=== PATIENT | male | born 1930 | race Caucasian/White ===

== ENCOUNTER 2020-12-22 08:56 | Inpatient (IN) | payer OTHER ==
[~2020-12-22] VITALS: Ht 190.5 cm; Wt 75.3 kg
--- NOTE | 2020-12-22 09:15 | NUR ---
Patient to ER bed 4 to gown for evaluation. Side rails up. Report given to Samaria THOMPSON.
--- NOTE | 2020-12-22 09:15 | NUR ---
Placed in room 4 . Placed on classroom monitor, blood pressure machine and pulse oximeter. To gown for exam. Side rails up. Report given to DONNA Mera.
--- NOTE | 2020-12-22 09:15 | NUR ---
ER at bedside examining patient.
[2020-12-22 09:16] VITALS: BP_SYST 157
[2020-12-22] MEDS ORDERED: DIPH-TET-PERTUS Vaccine 0.5 ML VIAL (ADACEL) I.M. ONE (09:30)
--- NOTE | 2020-12-22 09:32 | NUR ---
Pt. bib after a fall yesterday, pt. states his legs are typically weak and while outside yesterday he was a little dizzy and due to his weak legs he fell in the bushes, has scrapes on both arms and belly, and large scrape to Right FA with bruising. Denies any pain able to move arm with no difficulty.
[2020-12-22 09:58] LABS: BASOPHILS % (AUTO) 0.6 % (0.0-2.0); EOSINOPHILS % (AUTO) 0.1 % (0.0-4.0); HEMOGLOBIN 13.7 g/dL (14.0-18.0); LYMPHOCYTES # (AUTO) 1.3 K/uL (1.0-5.5); LYMPHOCYTES % (AUTO) 17.1 % (20.5-51.5); MEAN CORPUSCULAR HEMOGLOBIN 31 pg (27-31); MEAN CORPUSCULAR HGB CONC 35 % (32-36); MEAN CORPUSCULAR VOLUME 88 fL (79.0-98.0); MONOCYTES # (AUTO) 0.7 K/uL (0.0-1.0); MONOCYTES % (AUTO) 8.7 % (1.7-9.3); NEUTROPHILS # (AUTO) 5.7 K/uL (1.8-7.7); NEUTROPHILS % (AUTO) 73.5 % (40.0-70.0); PLATELET COUNT (AUTO) 203 K/uL (130-430); RED BLOOD CELL COUNT(AUTO) 4.45 MIL/uL (4.2-6.2); RED CELL DISTRIBUTION WIDTH 13.4 % (9.0-15.0); WHITE BLOOD COUNT (AUTO) 7.7 K/uL (4.8-10.8)
[2020-12-22 10:07] LABS: BILIRUBIN,URINE NEGATIVE (NEGATIVE); BLOOD, URINE NEGATIVE (NEGATIVE); COLOR,URINE YELLOW (YELLOW); GLUCOSE,URINE NEGATIVE (NEGATIVE); KETONES,URINE TRACE (NEGATIVE); LEUKOCYTE ESTERASE ,URINE NEGATIVE (NEGATIVE); NITRITE, URINE NEGATIVE (NEGATIVE); PROTEIN URINE NEGATIVE (NEGATIVE); UROBILINOGEN,URINE 0.2 (0.2-1.0)
[2020-12-22 10:08] LABS: ANION GAP 14 (5-15); CALCIUM 9.1 mg/dL (8.4-11.0); CHLORIDE 97 mmol/L (98-107); GLUCOSE 132 mg/dL (70-99); POTASSIUM 3.9 mmol/L (3.5-5.1); SODIUM SERUM 136 mmol/L (136-145); UREA NITROGEN, BLOOD 9 mg/dL (8-21)
[2020-12-22 10:13] LABS: CLARITY/URINE CLEAR (CLEAR)
[2020-12-22] MEDS ORDERED: BACITRACIN 1 GM OINT TP ONE (10:15)
[2020-12-22 10:17] LABS: ALANINE AMINOTRANSFERASE 39 U/L (12-78); ALBUMIN 3.5 g/dL (3.4-4.8); ASPARTATE AMINOTRANSFERASE 78 U/L (10-37); LIPASE 59 U/L (73-393); TOTAL BILIRUBIN 0.8 mg/dL (0.0-1.0)
--- NOTE | 2020-12-22 10:26 | NUR ---
abrassion to Right FA cleaned and bacitricin applied
--- NOTE | 2020-12-22 10:29 | NUR ---
radiology here for chest xray
[2020-12-22] MEDS ORDERED: LISI10TA29 PO (10:35)
[2020-12-22] MEDS ORDERED: FINA5TAB3 PO (10:35)
[2020-12-22] MEDS ORDERED: TERA2CAP18 PO (10:35)
--- NOTE | 2020-12-22 10:36 | NUR ---
ER at bedside discussing lab results and admission with patient.
[2020-12-22] MEDS ORDERED: ASPIRIN 325 MG TABLET PO ONE (10:45)
--- NOTE | 2020-12-22 10:57 | NUR ---
MED. REC. AND PT. BELONGINGS FORM DONE
[2020-12-22 11:19] LABS: CKMB RELATIVE INDEX 0.6 (0.0-2.9); CREATINE KINASE MB 11.9 ng/mL (0-3.6)
--- NOTE | 2020-12-22 11:40 | NUR ---
OPENING NOTE RECEIVED SBAR FROM ED RN, PATIENT IN BED, RESPIRATIONS, EVEN, NON LABORED, BED IN LOW AND LOCKED POSITION CALL LIGHT WITHIN REACH, BED ALARM ON. OBTAINED VS. INVENTORY OBTAINED OF PERSONAL ITEMS, EDUCATED PATIENT ON THE USE OF CALL LIGHT AND HOSPITAL ROUTINE. PATIENT ABLE TO DEMONSTRATE PROPER USE OF CALL LIGHT.
--- NOTE | 2020-12-22 11:41 | NUR ---
Patient will be admitted to care of Admitted to tele unit. Will go to room 105A. Belongings list completed. Complete and up to date summary report printed. SBAR report to be given at bedside to Carissa with opportunity for questions.
[2020-12-22] MEDS ORDERED: TERAZOSIN HCL 1 MG CAPSULE (HYTRIN) PO ONE (12:00)
[2020-12-22] MEDS ORDERED: FINASTERIDE 5 MG TABLET (PROSCAR) PO ONE (12:00)
[2020-12-22] MEDS ORDERED: LISINOPRIL 10 MG TABLET (PRINIVIL) PO ONE (12:00)
--- NOTE | 2020-12-22 12:22 | NUR ---
IV IV INSERTION TO RIGHT HAND 22G, FLUSHED FREELY NO SIGNS OF DISTRESS NOTED BY PATIENT
[2020-12-22 12:43] VITALS: BP_SYST 149
--- NOTE | 2020-12-22 13:52 | NUR ---
CONSULTATION: REASON FOR CONSULT: NSTEMI CONSULTING PHYSICIAN: LISETTE ORDERED BY:BRITTA SPOKE WITH ZOILA [phone]
--- NOTE | 2020-12-22 14:14 | NUR ---
Wound Evaluation: Wound Consult ordered for Low Osmany Score. Patient evaluated for a low Osmany score of 19. Patient was awake, alert, oriented and received in a Armen Bed with an Isoflex GEORGIE mattress. Patient is able to turn in bed. Skin assessment: 1. Right Mid Anterior Medial Forearm: Skin tear, present on admission. Wound bed has 60% pink tissue, 15% black scab, 50% yellow tissue, 10% red tissue. No odor, small sanguineous/yellow drainage. Periwound intact. Ecchymosis surrounding skin tear area. Skin tear measures 7.8 cm x 5.0 cm. Recommend: Cleanse skin tear with normal saline. Apply SurePrep to saul-skin tear area. Apply Hydrogel to skin tear bed. Cover with non-adhesive foam dressing. Wrap with Cristine wrap. Perform skin tear care daily, and as needed for dressing soiling or dislodgment. 2. Right Forearm, superior to site 1: Skin tear, present on admission. Skin tear is approximated, with no visible opening. No odor, no drainage. Recommend: Cover site with non-adhesive foam dressing. Wrap with Cristine wrap (same Cristine wrap used for Site 1). Perform site care daily, and as needed for dressing soiling or dislodgment. Recommend: Encourage and assist patient as needed with repositioning every 2 hours with pillow support. Elevate, off-load and float bilateral heels with one pillow lengthwise under each extremity at all times. Offload pressure areas with pillows for pressure re-distribution. Perform skin care and monitor skin integrity Q shift. Use moisture barrier cream on moisture susceptible areas QID and PRN for soiling. Addendum: 12/22/20 at 1430 by Roby Badillo RN Addendum: Skin tear in Site 2 measures 0.6 cm x 1.2 cm.
[2020-12-22 16:00] VITALS: BP_SYST 136
--- NOTE | 2020-12-22 17:11 | NUR ---
HAND [employer] DR KNOX WAS CALLED, RE: CRITICAL TROP LEVEL. SPOKE TO HAMIDA.
--- NOTE | 2020-12-22 17:21 | NUR ---
CRITICAL LAB INFORMED DR KNOX OF CRITICAL LAB TROPONIN 0.265
--- NOTE | 2020-12-22 17:32 | NUR ---
MD ROUNDS DR KNOX BEDSIDE EXAMINING PATIENT
[2020-12-22] MEDS ORDERED: ACETAMINOPHEN 325 MG TABLET PO PRN ×2 (18:15→18:45)
[2020-12-22] MEDS: NACL 0.9% 1,000 ML IV SCH (18:38)
--- NOTE | 2020-12-22 18:40 | NUR ---
spoke with Dr Brown, pharmacy called and needed parameters for tylenol. , new orders received
[2020-12-22 19:00] VITALS: BP_SYST 141
--- NOTE | 2020-12-22 19:02 | NUR ---
closing note Provided Sbar to night RN, patient in bed, respirations even, non labored, bed in low and locked position call light within reach, bed alarm on. IFv's running as ordered Endorsed care to night RN
[2020-12-22 20:00] VITALS: BP_SYST 141
[2020-12-23 00:24] VITALS: BP_SYST 118
[2020-12-23] MEDS: NACL 0.9% 1,000 ML IV SCH (04:19)
[2020-12-23 07:01] LABS: ALANINE AMINOTRANSFERASE 36 U/L (12-78); ALBUMIN 3.2 g/dL (3.4-4.8); ANION GAP 10 (5-15); ASPARTATE AMINOTRANSFERASE 63 U/L (10-37); CALCIUM 8.6 mg/dL (8.4-11.0); CHLORIDE 104 mmol/L (98-107); CREATININE 0.68 mg/dL (0.55-1.30); GLUCOSE 93 mg/dL (70-99); POTASSIUM 3.7 mmol/L (3.5-5.1); SODIUM SERUM 138 mmol/L (136-145); THYROID STIMULATING HORMONE 0.72 uIu/mL (0.36-3.74); TOTAL BILIRUBIN 0.8 mg/dL (0.0-1.0); UREA NITROGEN, BLOOD 8 mg/dL (8-21)
--- NOTE | 2020-12-23 07:40 | NUR ---
OPENING NOTES PT AWAKE, ALERT, AND ORIENTED. NONLABORED BREATHING NOTED ON ROOM AIR, TOLERATING WELL. IV LINE INTACT AND PATENT, NO SIGNS OF INFILTRATION NOTED. NO ACUTE DISTRESS NOTED. ALL NEEDS MET. CALL LIGHT IN REACH. FALL AND ASPIRATION PRECAUTIONS IN PLACE.
[2020-12-23 07:41] LABS: CHOLESTEROL 166 mg/dL (<200); CKMB RELATIVE INDEX 0.5 (0.0-2.9); CREATINE KINASE MB 5.5 ng/mL (0-3.6); HDL CHOLESTEROL 54 mg/dL (>45); LDL CHOLESTEROL 102 mg/dL (<100); TRIGLYCERIDES 61 mg/dL (30-150)
[2020-12-23 08:00] VITALS: BP_SYST 134
--- NOTE | 2020-12-23 08:40 | NUR ---
CLEARED BY DR. KNOX FOR DC
[2020-12-23] MEDS ORDERED: ASPIRIN 325 MG TABLET (ECOTRIN) PO SCH (09:00)
[2020-12-23] MEDS ORDERED: LISINOPRIL 10 MG TABLET (PRINIVIL) PO SCH (09:00)
[2020-12-23] MEDS ORDERED: FINASTERIDE 5 MG TABLET (PROSCAR) PO SCH (09:00)
[2020-12-23] MEDS ORDERED: TERAZOSIN HCL 1 MG CAPSULE (HYTRIN) PO SCH (09:00)
--- NOTE | 2020-12-23 09:46 | NUR ---
ROUTINE MEDS ADMINISTERED ORDERED PER MD, EDUCATION GIVEN, TOLERATED WELL.
[2020-12-23] MEDS ORDERED: ECO325 PO (11:53)
[2020-12-23 12:40] VITALS: BP_SYST 145
--- NOTE | 2020-12-23 12:45 | NUR ---
wound care done, tolerated well
[2020-12-23 13:38] VITALS: BP_SYST 145
--- NOTE | 2020-12-23 13:41 | NUR ---
D/C Patient Patient given medication reconciliation form and D/C instructions. Exit Care provided. Patient verbalized understanding. MD discussed with patient the results and treatment provided. Ambulatory with steady gait for discharge to home. Patient in stable condition, ID band removed. IV catheter removed, intact and dressing applied, no active bleeding. Rx of aspirin and cane given. Patient educated on pain management. All belongings sent with patient.
== END 2020-12-23 13:40 | disposition home or self-care (01) | DRG 281 ==
LOC: SED 08:56 → STU 10:48
PROVIDERS: ADMIT Internal Medicine Hospice and Palliative Medicine; ATTEND Internal Medicine Hospice and Palliative Medicine
DX: I21.4 Non-ST elevation (NSTEMI) myocardial infarction (principal); M62.82 Rhabdomyolysis; N40.0 Benign prostatic hyperplasia without lower urinary tract symptoms; E78.5 Hyperlipidemia, unspecified; I10 Essential (primary) hypertension; E88.09 Other disorders of plasma-protein metabolism, not elsewhere classified; Z20.822 Contact with and (suspected) exposure to COVID-19; R53.81 Other malaise; Z79.899 Other long term (current) drug therapy
CPT/HCPCS: 36415; 71045; 80053; 80061; 81003; 82550; 82553; 83690; 83735; 84443; 84484; 85025; 90715; 93005; 93306; 97116-GP; 97530-GP; 99285; G0378

== ENCOUNTER 2021-09-24 07:57 | Inpatient (IN) | payer OTHER, SELFPAY ==
[~2021-09-24] VITALS: Ht 193 cm; Wt 77.1 kg
[2021-09-24 07:57] VITALS: BP_SYST 138
[~2021-09-24 07:57] MED LIST: ECO325 PO; FINA5TAB3 PO; LISI10TA29 PO; TERA2CAP18 PO
[2021-09-24] MEDS ORDERED: dilTIAZem HCL IVP 5 MG/ML VIAL IVP ONE (08:30)
[2021-09-24] MEDS ORDERED: DILTIAZEM HCL 60 MG TABLET PO ONE (08:30)
[2021-09-24] MEDS ORDERED: ZOLP10TA6 PO (08:36)
[2021-09-24 08:56] LABS: BASOPHILS # (AUTO) 0.1 K/uL (0.0-0.2); BASOPHILS % (AUTO) 0.8 % (0.0-2.0); EOSINOPHILS % (AUTO) 0.3 % (0.0-4.0); HEMOGLOBIN 12.7 g/dL (14.0-18.0); LYMPHOCYTES # (AUTO) 1.1 K/uL (1.0-5.5); LYMPHOCYTES % (AUTO) 12.3 % (20.5-51.5); MEAN CORPUSCULAR HEMOGLOBIN 28 pg (27-31); MEAN CORPUSCULAR HGB CONC 34 % (32-36); MEAN CORPUSCULAR VOLUME 84 fL (79.0-98.0); MONOCYTES # (AUTO) 0.8 K/uL (0.0-1.0); MONOCYTES % (AUTO) 9.4 % (1.7-9.3); NEUTROPHILS # (AUTO) 6.9 K/uL (1.8-7.7); NEUTROPHILS % (AUTO) 77.2 % (40.0-70.0); PLATELET COUNT (AUTO) 441 K/uL (130-430); RED BLOOD CELL COUNT(AUTO) 4.51 MIL/uL (4.2-6.2); RED CELL DISTRIBUTION WIDTH 14.6 % (9.0-15.0); WHITE BLOOD COUNT (AUTO) 8.9 K/uL (4.8-10.8)
[2021-09-24 08:59] LABS: ACETONE, SERUM TRACE (NEGATIVE)
[2021-09-24 09:05] LABS: ALANINE AMINOTRANSFERASE 46 U/L (12-78); ALBUMIN 2.2 g/dL (3.4-4.8); ASPARTATE AMINOTRANSFERASE 34 U/L (10-37); CALCIUM 8.5 mg/dL (8.4-11.0); CREATININE 0.61 mg/dL (0.55-1.30); GLUCOSE 142 mg/dL (70-99); TOTAL BILIRUBIN 0.4 mg/dL (0.0-1.0); UREA NITROGEN, BLOOD 13 mg/dL (8-21)
[2021-09-24 09:22] LABS: ANION GAP 11 (5-15); CHLORIDE 97 mmol/L (98-107); POTASSIUM 3.7 mmol/L (3.5-5.1); SODIUM SERUM 132 mmol/L (136-145)
[2021-09-24] MEDS ORDERED: NACL 0.9% 1,000 ML IV ONE (09:45)
[2021-09-24] MEDS ORDERED: LEVOFLOXACIN IN DEXTROSE 5 % 100 ML IV ONE (09:45)
[2021-09-24 11:00] VITALS: BP_SYST 105
[2021-09-24 11:08] LABS: BILIRUBIN,URINE NEGATIVE (NEGATIVE); BLOOD, URINE NEGATIVE (NEGATIVE); CLARITY/URINE CLEAR (CLEAR); COLOR,URINE YELLOW (YELLOW); GLUCOSE,URINE NEGATIVE (NEGATIVE); KETONES,URINE 1+ (NEGATIVE); LEUKOCYTE ESTERASE ,URINE NEGATIVE (NEGATIVE); NITRITE, URINE NEGATIVE (NEGATIVE); PROTEIN URINE NEGATIVE (NEGATIVE)
[2021-09-24 11:30] VITALS: BP_SYST 105
[2021-09-24] MEDS ORDERED: IPRATROPIUM BROM 0.5 MG/2.5 ML VIAL.NEB (ATROVENT) INH PRN (12:30)
[2021-09-24] MEDS ORDERED: ALBUTEROL SULFATE 0.083% 2.5 MG/3 ML VIAL.NEB INH PRN (12:30)
[2021-09-24 13:01] VITALS: BP_SYST 105
[2021-09-24] MEDS ORDERED: cefTRIAXone 1 GM in D5W 50 ML IV ONE (13:15)
[2021-09-24] MEDS: ALBUTEROL SULFATE 0.083% 2.5 MG/3 ML VIAL.NEB INH SCH (13:55)
[2021-09-24] MEDS: IPRATROPIUM BROM 0.5 MG/2.5 ML VIAL.NEB (ATROVENT) INH SCH (13:57)
[2021-09-24] MEDS ORDERED: AZITHROMYCIN 500 MG in NS 250 ML IV ONE (14:00)
[2021-09-24 16:00] VITALS: BP_SYST 129
[2021-09-24 20:20] VITALS: BP_SYST 126
[2021-09-24] MEDS: ZOLPIDEM TARTRATE 5 MG TABLET PO PRN (21:38)
[2021-09-25 00:20] VITALS: BP_SYST 112
[2021-09-25] MEDS: ALBUTEROL SULFATE 0.083% 2.5 MG/3 ML VIAL.NEB INH SCH ×5 (01:00→21:34)
[2021-09-25] MEDS: IPRATROPIUM BROM 0.5 MG/2.5 ML VIAL.NEB (ATROVENT) INH SCH ×5 (01:00→21:34)
[2021-09-25] MEDS ORDERED: AMIODARONE HCL 200 MG TABLET PO ONE (08:00)
[2021-09-25] MEDS ORDERED: *LOVENOX 1MG/KG Q12H/PHARMACY XX ONE (08:15)
[2021-09-25] MEDS: LISINOPRIL 10 MG TABLET (PRINIVIL) PO SCH (08:22)
[2021-09-25] MEDS: ASPIRIN 325 MG TABLET (ECOTRIN) PO SCH (08:22)
[2021-09-25] MEDS: TERAZOSIN HCL 1 MG CAPSULE (HYTRIN) PO SCH (08:23)
[2021-09-25] MEDS: FINASTERIDE 5 MG TABLET (PROSCAR) PO SCH (08:23)
[2021-09-25 08:25] VITALS: BP_SYST 125
[2021-09-25] MEDS: cefTRIAXone 1 GM in D5W 50 ML IV SCH (08:25)
[2021-09-25] MEDS: METOPROLOL TARTRATE 25 MG TABLET PO SCH ×2 (09:39→20:54)
[2021-09-25] MEDS: AZITHROMYCIN 500 MG in NS 250 ML IV SCH (09:50)
[2021-09-25] MEDS ORDERED: ENOXAPARIN SODIUM 60 MG/0.6 ML SYRINGE SUBCUT ONE (10:00)
[2021-09-25 12:00] VITALS: BP_SYST 103
[2021-09-25 16:00] VITALS: BP_SYST 102
[2021-09-25 20:00] VITALS: BP_SYST 115
[2021-09-25] MEDS: ZOLPIDEM TARTRATE 5 MG TABLET PO PRN (20:53)
[2021-09-25] MEDS: ENOXAPARIN SODIUM 60 MG/0.6 ML SYRINGE SUBCUT SCH (20:57)
[2021-09-26 00:30] VITALS: BP_SYST 118
[2021-09-26] MEDS: IPRATROPIUM BROM 0.5 MG/2.5 ML VIAL.NEB (ATROVENT) INH SCH ×4 (01:00→20:38)
[2021-09-26] MEDS: ALBUTEROL SULFATE 0.083% 2.5 MG/3 ML VIAL.NEB INH SCH ×4 (01:00→20:37)
[2021-09-26 04:35] LABS: BASOPHILS # (AUTO) 0.1 K/uL (0.0-0.2); BASOPHILS % (AUTO) 0.8 % (0.0-2.0); EOSINOPHILS # (AUTO) 0.1 K/uL (0.0-0.4); EOSINOPHILS % (AUTO) 1.5 % (0.0-4.0); HEMOGLOBIN 11.5 g/dL (14.0-18.0); LYMPHOCYTES # (AUTO) 1.4 K/uL (1.0-5.5); LYMPHOCYTES % (AUTO) 15.5 % (20.5-51.5); MEAN CORPUSCULAR HEMOGLOBIN 29 pg (27-31); MEAN CORPUSCULAR HGB CONC 34 % (32-36); MEAN CORPUSCULAR VOLUME 85 fL (79.0-98.0); MONOCYTES # (AUTO) 0.9 K/uL (0.0-1.0); MONOCYTES % (AUTO) 9.9 % (1.7-9.3); NEUTROPHILS # (AUTO) 6.7 K/uL (1.8-7.7); NEUTROPHILS % (AUTO) 72.3 % (40.0-70.0); PLATELET COUNT (AUTO) 415 K/uL (130-430); RED BLOOD CELL COUNT(AUTO) 4.02 MIL/uL (4.2-6.2); RED CELL DISTRIBUTION WIDTH 14.3 % (9.0-15.0); WHITE BLOOD COUNT (AUTO) 9.2 K/uL (4.8-10.8)
[2021-09-26 05:23] LABS: ALANINE AMINOTRANSFERASE 48 U/L (12-78); ANION GAP 9 (5-15); ASPARTATE AMINOTRANSFERASE 48 U/L (10-37); CALCIUM 8.2 mg/dL (8.4-11.0); CHLORIDE 99 mmol/L (98-107); CREATININE 0.56 mg/dL (0.55-1.30); GLUCOSE 93 mg/dL (70-99); POTASSIUM 3.3 mmol/L (3.5-5.1); SODIUM SERUM 132 mmol/L (136-145); THYROID STIMULATING HORMONE 0.27 uIu/mL (0.36-3.74); TOTAL BILIRUBIN 0.2 mg/dL (0.0-1.0); UREA NITROGEN, BLOOD 14 mg/dL (8-21)
[2021-09-26 05:28] LABS: ERYTHROCYTE SEDIMENTATION RATE 52 MM/HR (0-15)
[2021-09-26 05:36] LABS: C-REACTIVE PROTEIN QUANT 9.8 mg/dL (0-0.5)
[2021-09-26 08:05] VITALS: BP_SYST 139
[2021-09-26] MEDS: FINASTERIDE 5 MG TABLET (PROSCAR) PO SCH (08:45)
[2021-09-26] MEDS: TERAZOSIN HCL 1 MG CAPSULE (HYTRIN) PO SCH (08:45)
[2021-09-26] MEDS: METOPROLOL TARTRATE 25 MG TABLET PO SCH ×2 (08:46→21:00)
[2021-09-26] MEDS: LISINOPRIL 10 MG TABLET (PRINIVIL) PO SCH (08:47)
[2021-09-26] MEDS: ASPIRIN 325 MG TABLET (ECOTRIN) PO SCH (08:47)
[2021-09-26] MEDS: ENOXAPARIN SODIUM 60 MG/0.6 ML SYRINGE SUBCUT SCH ×2 (08:49→21:26)
[2021-09-26] MEDS: cefTRIAXone 1 GM in D5W 50 ML IV SCH (08:52)
[2021-09-26] MEDS ORDERED: DOCUSATE SODIUM 100 MG CAPSULE PO PRN (09:00)
[2021-09-26] MEDS: AZITHROMYCIN 500 MG in NS 250 ML IV SCH (09:46)
[2021-09-26] MEDS ORDERED: KCL 20 mEq in 100 mL (PREMIX) 200 ML IV ONE (10:30)
[2021-09-26 12:16] VITALS: BP_SYST 115
[2021-09-26] MEDS: D5/0.45 NS 1,000 ML IV SCH ×2 (12:41→19:00)
[2021-09-26 16:38] VITALS: BP_SYST 119
[2021-09-26] MEDS ORDERED: FUROSEMIDE 40 MG/4 ML VIAL ONE (18:15)
[2021-09-26] MEDS ORDERED: FUROSEMIDE 40 MG/4 ML VIAL IVP ONE (18:15)
[2021-09-26] MEDS ORDERED: LORazepam 2 MG/ML VIAL IVP ONE (18:15)
[2021-09-26] MEDS ORDERED: LORazepam 2 MG/ML VIAL ONE (18:17)
[2021-09-26] MEDS ORDERED: cloNIDine HCL 0.1 MG TABLET PO PRN (18:30)
[2021-09-27] VITALS (7 sets, daily range): BP systolic 84–132
[2021-09-27] MEDS: IPRATROPIUM BROM 0.5 MG/2.5 ML VIAL.NEB (ATROVENT) INH SCH ×4 (01:42→20:27)
[2021-09-27] MEDS: ALBUTEROL SULFATE 0.083% 2.5 MG/3 ML VIAL.NEB INH SCH ×4 (01:42→20:28)
[2021-09-27] MEDS: D5/0.45 NS 1,000 ML IV SCH ×2 (05:00→20:20)
[2021-09-27 07:47] LABS: BASOPHILS % (AUTO) 0.2 % (0.0-2.0); EOSINOPHILS % (AUTO) 0.1 % (0.0-4.0); HEMATOCRIT 38.5 % (36-54); HEMOGLOBIN 12.8 g/dL (14.0-18.0); LYMPHOCYTES # (AUTO) 0.7 K/uL (1.0-5.5); LYMPHOCYTES % (AUTO) 4.6 % (20.5-51.5); MEAN CORPUSCULAR HEMOGLOBIN 28 pg (27-31); MEAN CORPUSCULAR HGB CONC 33 % (32-36); MEAN CORPUSCULAR VOLUME 84 fL (79.0-98.0); MONOCYTES # (AUTO) 0.8 K/uL (0.0-1.0); NEUTROPHILS # (AUTO) 13.6 K/uL (1.8-7.7); NEUTROPHILS % (AUTO) 90.1 % (40.0-70.0); PLATELET COUNT (AUTO) 418 K/uL (130-430); RED BLOOD CELL COUNT(AUTO) 4.56 MIL/uL (4.2-6.2); RED CELL DISTRIBUTION WIDTH 14.8 % (9.0-15.0); WHITE BLOOD COUNT (AUTO) 15.1 K/uL (4.8-10.8)
[2021-09-27 07:58] LABS: ANION GAP 11 (5-15); CALCIUM 7.5 mg/dL (8.4-11.0); CHLORIDE 98 mmol/L (98-107); GLUCOSE 173 mg/dL (70-99); POTASSIUM 3.4 mmol/L (3.5-5.1); SODIUM SERUM 133 mmol/L (136-145); UREA NITROGEN, BLOOD 13 mg/dL (8-21)
[2021-09-27] MEDS: ASPIRIN 325 MG TABLET (ECOTRIN) PO SCH (09:00)
[2021-09-27] MEDS: LISINOPRIL 10 MG TABLET (PRINIVIL) PO SCH (09:00)
[2021-09-27] MEDS: ENOXAPARIN SODIUM 60 MG/0.6 ML SYRINGE SUBCUT SCH ×2 (09:00→20:22)
[2021-09-27] MEDS: METOPROLOL TARTRATE 25 MG TABLET PO SCH ×2 (09:00→20:22)
[2021-09-27] MEDS: FINASTERIDE 5 MG TABLET (PROSCAR) PO SCH (09:00)
[2021-09-27] MEDS: TERAZOSIN HCL 1 MG CAPSULE (HYTRIN) PO SCH (09:00)
[2021-09-27] MEDS ORDERED: AMIODARONE HCL 200 MG TABLET PO ONE (09:15)
[2021-09-27] MEDS ORDERED: INSULIN REGULAR, HUMAN 100 UNITS/ML, 10 ML VIAL (humuLIN R) SUBCUT PRN (09:30)
[2021-09-27] MEDS ORDERED: DEXTROSE 50% JECT 50 ML DISP.SYRIN IVP PRN (09:30)
[2021-09-27] MEDS ORDERED: *PPN PER PHARMACY XX PRN (09:30)
[2021-09-27 09:33] LABS: ERYTHROCYTE SEDIMENTATION RATE 55 MM/HR (0-15)
[2021-09-27] MEDS ORDERED: DIPHENHYDRAMINE INJ 50 MG/ML VIAL IVP PRN (09:45)
[2021-09-27] MEDS ORDERED: LORazepam 2 MG/ML VIAL ONE (09:59)
[2021-09-27] MEDS ORDERED: DEXTROSE 50%-WATER 50 ML DISP.SYRIN IVP PRN (10:00)
[2021-09-27] MEDS ORDERED: GLUCOSE (DEXTROSE) ORAL GEL -Adults PO PRN (10:00)
[2021-09-27] MEDS ORDERED: D5W 1,000 ML IV PRN (10:00)
[2021-09-27] MEDS ORDERED: LORazepam 2 MG/ML VIAL IVP ONE ×2 (10:00→11:45)
[2021-09-27] MEDS: cefTRIAXone 1 GM in D5W 50 ML IV SCH (10:38)
[2021-09-27 10:58] LABS: C-REACTIVE PROTEIN QUANT 17.5 mg/dL (0-0.5)
[2021-09-27] MEDS ORDERED: MORPHINE SULFATE IN 0.9 % NACL 100 ML IV PRN (11:15)
[2021-09-27] MEDS ORDERED: NALOXONE HCL 0.4 MG/ML AMP (NARCAN) IVP PRN (11:15)
[2021-09-27] MEDS ORDERED: COMMUNICATION ORDER XX ONE (11:15)
[2021-09-27] MEDS: PIPERACILLIN/TAZO 2.25G/DEX-IS 50 ML IV SCH ×2 (12:00→18:00)
[2021-09-27 12:26] LABS: PHOSPHORUS 2.8 mg/dL (2.7-4.5)
[2021-09-27] MEDS ORDERED: TPN PERIPHERAL IV SCH ×8 (21:00)
[2021-09-27] MEDS ORDERED: AMIODARONE HCL 200 MG TABLET PO SCH (21:00)
[2021-09-27] MEDS ORDERED: POTASSIUM CHLORIDE IV SCH ×8 (21:00)
[2021-09-27] MEDS ORDERED: SODIUM ACETATE IV SCH ×8 (21:00)
[2021-09-27] MEDS ORDERED: [UNRECOGNIZED DRUG - OTHER] IV SCH ×8 (21:00)
[2021-09-28] VITALS: BP_SYST 65
[2021-09-28] MEDS: PIPERACILLIN/TAZO 2.25G/DEX-IS 50 ML IV SCH
== END 2021-09-28 03:00 | DRG 871 ==
LOC: SED 07:57 → STU 10:18
PROVIDERS: ADMIT Internal Medicine Hospice and Palliative Medicine; ATTEND Internal Medicine Hospice and Palliative Medicine
PROC: 5A09357 Assistance with Respiratory Ventilation, Less than 24 Consecutive Hours, Continuous Positive Airway Pressure (ICD-10-PCS; 2021-09-26)
PROC: 0W993ZZ Drainage of Right Pleural Cavity, Percutaneous Approach (ICD-10-PCS; principal; 2021-09-27)
DX: A41.9 Sepsis, unspecified organism (principal); J96.00 Acute respiratory failure, unspecified whether with hypoxia or hypercapnia; E43 Unspecified severe protein-calorie malnutrition; J69.0 Pneumonitis due to inhalation of food and vomit; J44.0 Chronic obstructive pulmonary disease with (acute) lower respiratory infection; I48.20 Chronic atrial fibrillation, unspecified; E87.1 Hypo-osmolality and hyponatremia; J90 Pleural effusion, not elsewhere classified; I10 Essential (primary) hypertension; N40.0 Benign prostatic hyperplasia without lower urinary tract symptoms; D64.9 Anemia, unspecified; E88.09 Other disorders of plasma-protein metabolism, not elsewhere classified; E87.6 Hypokalemia; F03.90 Unspecified dementia, unspecified severity, without behavioral disturbance, psychotic disturbance, mood disturbance, and anxiety; E83.52 Hypercalcemia; R53.81 Other malaise; E05.90 Thyrotoxicosis, unspecified without thyrotoxic crisis or storm; R74.01 Elevation of levels of liver transaminase levels; Z20.822 Contact with and (suspected) exposure to COVID-19; Z79.01 Long term (current) use of anticoagulants; Z79.82 Long term (current) use of aspirin; Z79.899 Other long term (current) drug therapy; Z68.20 Body mass index [BMI] 20.0-20.9, adult
CPT/HCPCS: 32555; 36415; 70450-TC; 71045; 71250-TC; 76376; 76604; 80048; 80053; 81003; 82009; 82550; 82803-TC; 83605; 83735; 83880; 84100; 84439; 84443; 84478; 84484; 85025; 85651-TC; 86140; 86376; 86480; 86738; 87040; 92610-GN; 94640; 94660; 94760; 96361; 96374; 99285; C1729; G0378; J0456; J0696; J1650; J1815; J1940; J1956; J2060; J2270; J2543; J3475; J3480; J3490; J7050; J7060; J7613